=== PATIENT | male | born 1970 | race Hispanic/Latino ===

== ENCOUNTER 2025-02-24 04:08 | Emergency (ER) | payer BC, OTHER, SELFPAY ==
[2025-02-24 04:10] VITALS: BP 142/98
--- NOTE | 2025-02-24 04:37 | ED.GENMED ---
History of Present Illness
<DO Jaquelin Restrepo Last Filed: 02/24/25 04:38>
General
Chief Complaint: Abdominal Pain
Source: patient
Time Seen by Provider: 02/24/25 04:16
History of Present Illness
History of Present Illness:
55-year-old male presents to the emergency room complaining of abdominal pain. Patient began having upper abdominal pain associated with some nausea and vomiting 3 to 4 days ago. The nausea and vomiting has abated but he continues to have upper
abdominal pain and bloating. Symptoms wax and wane in intensity. Patient's also had some diarrhea. No fever or chills. Patient denies any previous abdominal surgery. Has not taken any xtzh-xev-abehcea medication for symptoms.
Phy Exam
<Mike Wagner DO - Last Filed: 02/24/25 04:38>
Physical Exam
Physical Exam:
General: Awake, Alert, Oriented X3. No acute distress.
Vitals: unremarkable
Head: Atraumatic
Eyes: Pupils equal, EOMI
Throat: Airway intact, no exudates
Neck: Trachea midline
Lungs: Clear and equal b/l
Heart: Regular rate, no murmurs
Abd: Soft, tender to palpation right upper quadrant, No pulsatile mass
Neuro: Nonfocal
Skin: Warm, dry, no rash
Extremities: pulses equal b/l, no edema
Sepsis
<Mike Wagner DO - Last Filed: 02/24/25 04:38>
Sepsis Screen
Sepsis Screen: Possible Sepsis
Date: 02/24/25
Time: 04:37
<Smooth Ye DO - Last Filed: 02/24/25 07:48>
Sepsis Screening
Sepsis Assessment: Sepsis Ruled Out
Sepsis Screen
Sepsis Screen: Sepsis Ruled Out
Date: 02/24/25
Time: 07:48
Course
Barbaralt;Mike BernaCleve Wagner, DO - Last Filed: 02/24/25 04:38>
Orders/Labs/Results
Orders:
Orders
02/24/25 04:35
0.9% Sodium Chloride 1000 ml [Nss] 1,000 ml IV BOLUS
02/24/25 04:36
US Abdomen Complete/Upper Urgent
Comment:
Reason For Exam: r upper abd pain
02/24/25 05:17
Complete Blood Count/With Diff Urgent
02/24/25 05:40
Urinalysis Reflex To Culture Urgent
Date Specimen was Collected: 02/24/25
Time Specimen was Collected: 05:18
Urine Microscopic Reflex Cult Urgent
02/24/25 05:56
Comprehensive Metabolic Panel Urgent
Lipase Urgent
Comment: COMBINED ORDERS
02/24/25 06:50
Electrocardiogram (*1) Urgent
Reason for Study: Abdominal Pain
EKG- Treatment ONCE
Abnormal Lab Results
02/24/25 02/24/25 02/24/25
05:17 05:40 05:56
MCH 26.9 L pg
(27.0-31.0)
MCHC 32.2 L g/dL
(33.0-37.0)
BUN 23 H mg/dl
(9-20)
Glucose 124 H mg/dl
(70-99)
AST 15 L U/L
(17-59)
Urine Bacteria (Reflex) Few A
(Negative)
Urine Albumin (Reflex) 2+ A
(Neg - Trace)
02/24/25 05:17
02/24/25 05:56
Vital Signs
Initial and Last Documented VS:
Initial Vital Signs
Temp Pulse Resp BP Pulse Ox
98.1 F 74 24 142/98 98
02/24/25 04:10 02/24/25 04:10 02/24/25 04:10 02/24/25 04:10 02/24/25 04:10
Last Documented Vital Signs
Temp Pulse Resp BP Pulse Ox
98.1 F 74 24 145/86 98
02/24/25 04:10 02/24/25 04:10 02/24/25 04:10 02/24/25 06:00 02/24/25 06:01
<Smooth Ye, DO - Last Filed: 02/24/25 07:48>
Orders/Labs/Results
Orders:
Orders
02/24/25 04:35
0.9% Sodium Chloride 1000 ml [Nss] 1,000 ml IV BOLUS
02/24/25 04:36
US Abdomen Complete/Upper Urgent
Comment:
Reason For Exam: r upper abd pain
02/24/25 05:17
Complete Blood Count/With Diff Urgent
02/24/25 05:40
Urinalysis Reflex To Culture Urgent
Date Specimen was Collected: 02/24/25
Time Specimen was Collected: 05:18
Urine Microscopic Reflex Cult Urgent
02/24/25 05:56
Comprehensive Metabolic Panel Urgent
Lipase Urgent
Comment: COMBINED ORDERS
02/24/25 06:50
Electrocardiogram (*1) Urgent
Reason for Study: Abdominal Pain
EKG- Treatment ONCE
Abnormal Lab Results
02/24/25 02/24/25 02/24/25
05:17 05:40 05:56
MCH 26.9 L pg
(27.0-31.0)
MCHC 32.2 L g/dL
(33.0-37.0)
BUN 23 H mg/dl
(9-20)
Glucose 124 H mg/dl
(70-99)
AST 15 L U/L
(17-59)
Urine Bacteria (Reflex) Few A
(Negative)
Urine Albumin (Reflex) 2+ A
(Neg - Trace)
02/24/25 05:17
02/24/25 05:56
Vital Signs
Initial and Last Documented VS:
Initial Vital Signs
Temp Pulse Resp BP Pulse Ox
98.1 F 74 24 142/98 98
02/24/25 04:10 02/24/25 04:10 02/24/25 04:10 02/24/25 04:10 02/24/25 04:10
Last Documented Vital Signs
Temp Pulse Resp BP Pulse Ox
98.1 F 74 24 145/86 98
02/24/25 04:10 02/24/25 04:10 02/24/25 04:10 02/24/25 06:00 02/24/25 06:01
<Mike Wagner DO - Last Filed: 02/24/25 04:38>
*Pulse Oximetry
SaO2: 98
<Smooth Ye DO - Last Filed: 02/24/25 07:48>
*Pulse Oximetry
Patient hypoxic: no
*Critical Care Note
Total Time (30-74mins, 75-104mins- exclusive of procedures): Not Applicable
<Smooth Ye DO - Last Filed: 02/24/25 07:48>
Update Note
Update Note:
7:45 AM
Signout pending ultrasound, labs, EKG noted patient's ultrasound labs noted, his abdomen is soft and nontender is tolerating p.o.
ED Attending Note
<DO Jaquelin Restrepo Last Filed: 02/24/25 04:38>
-
Portions of this chart may have been created with voice recognition software.� Occasional wrong word or��sound alike� substitutions may have occurred due to the inherent limitations of voice recognition software.
Discharge Plan
Departure
Patient Disposition: Home (Routine Discharge)
Date of Disposition: 02/24/25
Time of Disposition: 07:47
Patient with high blood pressure during this ER visit?: No
Condition: Good
Discharge Problem:
Abdominal pain
Instructions: Nausea and Vomiting, Adult (DC), Abdominal Pain
Prescriptions:
New
ondansetron 4 mg tablet,disintegrating
4 mg PO Q8H PRN (Reason: nausea and vomiting) Qty: 20 0RF
No Action
metformin 1,000 mg Tablet Extended Release 24hr
1,000 mg PO BID
Mounjaro 7.5 mg/0.5 mL Pen Injector
7.5 mg SC QWEEK
Referrals:
PRIVATE,PHYSICIAN [Family Provider, Internal Medicine]
Activity Restrictions/Additional Instructions:
Follow-up with your primary care provider call today for appointment
Interventions
Interventions:
*Risk Screen - Suicide Last Done: 02/24/25 04:10
*General Assessment Last Done: 02/24/25 04:50
*Neglect/Abuse Screening Last Done: 02/24/25 04:10
*ED- Fall Risk Assessment Last Done: 02/24/25 04:50
*ED COVID-19 Vaccine History Last Done: 02/24/25 04:50
*ED Influenza Vaccine History Last Done: 02/24/25 04:50
GY-Kajrjm-Llqrxgqdjh Assessment Last Done: 02/24/25 07:05
Discharge Date and Time
Print Language: ARMENIAN
[2025-02-24 04:50] VITALS: BMI 28.8
[2025-02-24 04:58] VITALS: BP 148/84
[2025-02-24] MEDS: NSS 1000 IV (04:59)
[2025-02-24 05:00] VITALS: BP 144/87
[2025-02-24 05:24] LABS: Hematocrit 45.7 % (39.0-52.0); Hemoglobin 14.7 g/dL (13.0-18.0); Mean Corp Hgb Conc. 32.2 g/dL (33.0-37.0); Mean Corpuscular Volume 83.5 fL (80.0-94.0); Nucleated Red Blood Cells % 0 % (-); Platelet Count 211 10^3/uL (130-400); Red Cell Dist. Width 13.9 % (11.5-14.5)
[2025-02-24 06:00] VITALS: BP 145/86
[2025-02-24 06:13] LABS: Urine Character Clear (Clear)
[2025-02-24 06:27] LABS: ALT (SGPT) 15 U/L (0-50); AST (SGOT) 15 U/L (17-59); Albumin 3.8 g/dl (3.5-5.0); Alkaline Phosphatase 113 U/L (38-126); Blood Urea Nitrogen 23 mg/dl (9-20); Calcium 8.5 mg/dl (8.4-10.2); Carbon Dioxide 27 mmol/L (22-30); Chloride 105 mmol/L (98-107); Estimated Creatinine Clearance 78 ml/min; Glucose 124 mg/dl (70-99); Lipase 62 U/L (23-300); Potassium 4.1 mmol/L (3.5-5.1); Sodium 140 mmol/L (135-145); Total Protein 7.0 g/dl (6.3-8.2); eGFR > 60.00
[2025-02-24 06:37] LABS: Urine Urothelial Cell 0-2 /LPF (FEW)
[2025-02-24 06:38] LABS: Urine Red Blood Cell 0-2 /HPF (0-2); Urine White Cell 0-2 /HPF (0-5)
[2025-02-24 07:00] VITALS: BP 146/87
[2025-02-24 07:53] VITALS: BP 143/83
== END 2025-02-24 07:53 | disposition home or self-care (01) ==
LOC: EMR 04:08
PROVIDERS: Emergency Medicine; EMERGENCY PHYSICIAN Emergency Medicine
DX: R10.10 Upper abdominal pain, unspecified (principal); R11.2 Nausea with vomiting, unspecified
CPT/HCPCS: 96360; 99284; 76700; 80053; 81003; 81015; 83690; 85025; 93005